=== PATIENT | male | born 1990 | race Caucasian/White ===

== ENCOUNTER 2017-03-22 18:51 | Emergency (ER) | payer BC ==
[2017-03-22] MEDS ORDERED: Oseltamivir 75 MG CAP ONE (19:24)
== END 2017-03-22 19:33 | disposition home or self-care (01) ==
LOC: BURERS 18:51
DX: J11.1 Influenza due to unidentified influenza virus with other respiratory manifestations (principal); I10 Essential (primary) hypertension; Z79.899 Other long term (current) drug therapy
CPT/HCPCS: 99283

== ENCOUNTER 2018-02-12 16:26 | Emergency (ER) | payer BC ==
[2018-02-12] MEDS ORDERED: AMOXicillin 250 MG CAP ONE (17:43)
[2018-02-12] MEDS ORDERED: Dexamethasone 4 MG TAB ONE (17:43)
== END 2018-02-12 17:55 | disposition home or self-care (01) ==
LOC: BURERS 16:26
DX: J06.9 Acute upper respiratory infection, unspecified (principal); I10 Essential (primary) hypertension; F17.220 Nicotine dependence, chewing tobacco, uncomplicated
CPT/HCPCS: 99283; J8540

== ENCOUNTER 2018-03-02 23:46 | Emergency (ER) | payer BC | END 2018-03-03 00:25 | disposition home or self-care (01) | LOC: BURERS 23:46 | DX: J02.9 Acute pharyngitis, unspecified (principal); I10 Essential (primary) hypertension; F17.220 Nicotine dependence, chewing tobacco, uncomplicated; Z79.899 Other long term (current) drug therapy | CPT/HCPCS: 87081; 87430; 99283 ==

== ENCOUNTER 2018-06-27 06:42 | Emergency (ER) | payer BC | END 2018-06-27 07:11 | disposition home or self-care (01) | LOC: BURERS 06:42 | DX: J45.991 Cough variant asthma (principal); I10 Essential (primary) hypertension; F17.220 Nicotine dependence, chewing tobacco, uncomplicated; Z79.899 Other long term (current) drug therapy | CPT/HCPCS: 99281 ==

== ENCOUNTER 2020-03-27 14:06 | Emergency (ER) | payer BC ==
[2020-03-27] MEDS ORDERED: hydrOXYzine 25 MG TAB ONE (14:40)
[2020-03-27] MEDS ORDERED: Famotidine 20 MG TAB ONE (14:40)
== END 2020-03-27 14:42 | disposition home or self-care (01) ==
LOC: BURERS 14:06
DX: L25.9 Unspecified contact dermatitis, unspecified cause (principal); Z79.899 Other long term (current) drug therapy; I10 Essential (primary) hypertension; F17.220 Nicotine dependence, chewing tobacco, uncomplicated
CPT/HCPCS: 99282

== ENCOUNTER 2021-04-03 01:10 | Emergency (ER) | payer BC ==
[2021-04-03] MEDS ORDERED: Thiamine HCl 200 MG/2 ML VIAL ONE (01:28)
[2021-04-03] MEDS ORDERED: Ondansetron PF 4 MG/2 ML Vial ONE (01:28)
[2021-04-03] MEDS ORDERED: Famotidine In NaCl 20 mg/50 ml Premix Bag ONE (01:28)
[2021-04-03 01:57] LABS: #Basophils 0.1 thou/uL (0.0-0.2); #Eosinphils 0.1 thou/uL (0.0-0.7); #Lymphocytes 2.9 thou/uL (1.20-3.40); #Monocytes 0.8 thou/uL (0.11-0.59); #Neutrophils 7.5 thou/uL (1.40-6.50); %Basophils 0.8 % (0.0-1.0); %Eosinophils 1.2 % (0.0-10.0); %Lymphocytes 25.5 % (21.0-51.0); %Monocytes 7.2 % (0.0-10.0); %Neutrophils 65.3 % (42.0-75.0); Hemoglobin 16.1 g/dL (14.0-18.0); Mean Corpuscular HGB CONC 33.3 g/dL (32.0-36.0); Mean Corpuscular Hemoglobin 27.4 pg (27.0-31.0); Mean Corpuscular Volume 82.1 fL (78.0-98.0); Mean Platelet Volume 8.4 fL (7.4-10.4); Platelet Count 259 thou/uL (130-400); RBC Distribution Width 12.5 % (11.5-14.5); White Blood Cell (WBC) Count 11.4 thou/uL (4.8-10.8)
[2021-04-03 02:15] LABS: ALT (SGPT) 42 U/L (8-55); AST (SGOT) 25 U/L (5-34); Albumin 4.3 g/dL (3.5-5.0); Alcohol 150 mg/dL (Less than 10); Alkaline Phosphatase 58 U/L (40-110); Anion Gap 16 mmol/L (10-20); BUN (Urea Nitrogen) 11 mg/dL (8.9-20.6); Bilirubin, Total 0.3 mg/dL (0.2-1.2); Calc. Creatinine Clearance 0 mL/min (70-130); Carbon Dioxide 21 mmol/L (22-29); Chloride 107 mmol/L (98-107); Globulin 3.1 g/dL (2.4-3.5); Glucose 117 mg/dL (70-105); Lipase 9 U/L (8-78); Potassium 3.4 mmol/L (3.5-5.1); Protein, Total 7.4 g/dL (6.0-8.3); Sodium 141 mmol/L (136-145)
== END 2021-04-03 02:35 | disposition home or self-care (01) ==
LOC: BURERS 01:10
DX: F10.129 Alcohol abuse with intoxication, unspecified (principal); R11.2 Nausea with vomiting, unspecified; I10 Essential (primary) hypertension; F17.220 Nicotine dependence, chewing tobacco, uncomplicated; Z79.899 Other long term (current) drug therapy
CPT/HCPCS: 80053; 80307; 83690; 85025; 96365; 96375; J2405; J3411